=== PATIENT | female | born 1995 | race Caucasian/White ===

== ENCOUNTER 2018-05-23 19:06 | Emergency (ER) | payer MEDICAID, OTHER ==
[2018-05-23 19:20] VITALS: TEMP 98.5
[2018-05-23] MEDS ORDERED: methylPREDNISolone 125 MG in Sodium Chloride 0.9% 50 ML IV STA (19:32)
[2018-05-23] MEDS ORDERED: Albuterol-Ipratrop 3 mg / 0.5 (3 ml) UD ONE (19:33)
[2018-05-23] MEDS ORDERED: Albuterol-Ipratrop 3 mg / 0.5 (3 ml) UD INH STA (19:33)
[2018-05-23 20:02] LABS: BASO # 0.1 K/uL (0.0-0.2); BASO % 1.1 % (0.0-2.0); EOS # 0.4 K/uL (0.0-0.7); EOS % 3.5 % (0.0-4.0); HEMOGLOBIN 12.9 g/dL (12.0-16.0); LYMPH # 3.8 K/uL (1.0-4.3); MEAN CELL VOLUME 83.6 fl (81.0-99.0); MEAN CORPUSCULAR HGB CONC 33.6 g/dL (33.0-37.0); MEAN PLATELET VOLUME 10.7 fl (7.2-11.7); MONO # 0.8 K/uL (0.0-0.8); MONO % 6.4 % (0.0-10.0); NEUT # 7.1 K/uL (1.8-7.0); RBC 4.62 Mil/uL (3.80-5.20); RED CELL DISTRIBUTION WIDTH 14.5 % (11.5-14.5); WHITE BLOOD COUNT 12.2 K/uL (4.8-10.8)
[2018-05-23 20:12] LABS: BLOOD UREA NITROGEN 13 mg/dl (7-17); CALCIUM 10.1 mg/dL (8.4-10.2); GFR NON-AFRICAN AMERICAN > 60
--- NOTE | 2018-05-23 21:44 | ED PDOC ---
HPI: SOB/CHF/COPD Time Seen by Provider: 05/23/18 19:31 Chief Complaint (Nursing): Shortness Of Breath History/Exam Limitations: no limitations Onset/Duration Of Symptoms: Days Current Respiratory Medications: Albuterol (. no recent refill) Additional Complaint(s): 22 yo F with PMHx of asthma presents with SOB which she atributes to anxiety and asthma. PT states she has been feeling like she is wheezing for 2 days but denies fever, cough, or chest pain. Pt states she began to feel very nervous this evening which exacerbated her SOB. No previous intubation, no previous admission for asthma. NO calf swelling/tenderness. PMD: none Past Medical History Vital Signs: Last Vital Signs Temp 98.5 F 05/23/18 19:17 Pulse 120 H 05/23/18 19:17 Resp 24 05/23/18 19:46 BP 139/74 05/23/18 19:17 Pulse Ox 96 05/23/18 19:46 - Medical History PMH: Asthma - Family History Family History: States: Unknown Family Hx - Immunization History Hx Tetanus Toxoid Vaccination: Yes Hx Influenza Vaccination: No Hx Pneumococcal Vaccination: No - Home Medications Home Medications: Ambulatory Orders Medication Instructions Recorded Albuterol [Proventil] 0.09 mg IH 11/18/13 Albuterol/Ipratropium [Combivent] 1 puff IH 11/18/13 methylPREDNISolone [Medrol 4 mg 4 mg PO DAILY #1 units 11/18/13 Dosepak(21)] Albuterol Sulfate [Proventil Hfa] 6.7 gm IH Q4 #1 hfa.aer.ad 05/23/18 RX: Prednisone [Deltasone] 40 mg PO DAILY #8 tablet 05/23/18 - Allergies Allergies/Adverse Reactions: Allergies Allergy/AdvReac Type Severity Reaction Status Date / Time No Known Allergies Allergy Verified 05/23/18 19:20 Review of Systems Constitutional: Negative for: Fever, Chills, Sweats Eyes: Negative for: Pain ENT: Negative for: Nose Congestion, Throat Pain, Throat Swelling Cardiovascular: Negative for: Chest Pain Respiratory: Positive for: Shortness of Breath, Wheezing. Negative for: Cough Gastrointestinal: Negative for: Nausea, Vomiting, Abdominal Pain Neurological: Negative for: Weakness, Numbness Psych: Positive for: Anxiety Physical Exam - Reviewed Vital Signs Reviewed: Yes - Physical Exam Appears: Positive for: Well, Non-toxic, No Acute Distress, Uncomfortable Head Exam: Positive for: ATRAUMATIC Skin: Positive for: Normal Color, Warm, Dry Eye Exam: Positive for: Normal appearance Neck: Positive for: Normal, Trachea Midline Cardiovascular/Chest: Positive for: Regular Rate, Rhythm, Chest Non Tender. Negative for: JVD Respiratory: Positive for: Wheezing. Negative for: Crackles Gastrointestinal/Abdominal: Positive for: Soft. Negative for: Tenderness Extremity: Negative for: Tenderness, Calf Tenderness - Laboratory Results Result Diagrams: 05/23/18 19:50 05/23/18 19:50 - ECG O2 Sat by Pulse Oximetry: 96 Medical Decision Making Medical Decision Making: Pt with acute anxiety and asthma exacerbation. -ativan -duonebs -solumedrol -reassess pt Pt initially seen on arrival to ED and asthma and anxiety treatment started immediately. Pt now asymptomatic without wheeze, anxiety, or abnormal vitals. Labs WNL. Pt to be discharged home with referral to outpatient clinic and Rx for Albuterol and Prednisone. Return parameters discussed with the patient. Disposition - Clinical Impression Clinical Impression: Asthma exacerbation - Patient ED Disposition Is Patient to be Admitted: No - Disposition Referrals: [facility] [Outside] Disposition: Routine/Home Disposition Time: 21:54 Condition: IMPROVED Additional Instructions: Take medications as prescribed. Follow up as referred for outpatient clinic. Return to the emergency department if symptoms worsen. Prescriptions: Albuterol Sulfate [Proventil Hfa] 6.7 gm IH Q4 #1 hfa.aer.ad RX: Prednisone [Deltasone] 40 mg PO DAILY #8 tablet Instructions: Asthma, Adult (DC) Forms: scanR (Hungarian) Print Language: ARMENIAN
[2018-05-23 21:49] VITALS: BP 127/76; PULSE 83; RESP 16
[2018-05-23 22:01] VITALS: O2SAT 96
--- NOTE | 2018-05-24 12:33 | RAD ---
Date of service: 05/23/2018 HISTORY: possible admission COMPARISON: No prior. FINDINGS: LUNGS: No active pulmonary disease. PLEURA: No significant pleural effusion identified, no pneumothorax apparent. CARDIOVASCULAR: Normal. OSSEOUS STRUCTURES: No significant abnormalities. VISUALIZED UPPER ABDOMEN: Normal. OTHER FINDINGS: None. IMPRESSION: No active disease.
== END 2018-05-23 22:07 | disposition home or self-care (01) ==
LOC: H.ER 19:06
DX: J45.901 Unspecified asthma with (acute) exacerbation (principal)
CPT/HCPCS: 71045; 80048; 81025; 82948; 85025; 94640; 96374; 96375; 99284; J2060; J2930